=== PATIENT | male | born 1965 | race Caucasian/White ===

== ENCOUNTER 2018-10-18 11:11 | Emergency (ER) | payer BC ==
[2018-10-18] MEDS ORDERED: Dexamethasone 4 MG/ML SDV PO ONE (11:37)
[2018-10-18] MEDS ORDERED: Cetirizine 10 MG Tab PO ONE (11:37)
--- NOTE | 2018-10-18 11:55 | EDM.PDOC ---
ED HPI GENERAL MEDICAL PROBLEM - General Chief Complaint: Bite:Animal, Insect Stated Complaint: BEE STING AND IS ALLERGIC Time Seen by Provider: 10/18/18 11:35 Source of Information: Reports: Patient, Family History Limitations: Reports: No Limitations - History of Present Illness INITIAL COMMENTS - FREE TEXT/NARRATIVE: Palomo is a 53 year old male who presents to the ED today after being stung twice by bees around 1045 this morning. Patient does have a bee sting allergy, has had to use epi pens in the past, did not have with today but did take 25 mg of Benadryl prior to arrival here. Sting locations to right foot and right upper arm, no stinger. Patient denies any sob, oral swelling or trouble with secretions. Onset: Today - Related Data Allergies Allergy/AdvReac Type Severity Reaction Status Date / Time No Known Allergies Allergy Verified 10/18/18 11:31 Home Meds: Home Meds Omeprazole 1 tab PO DAILY 10/18/18 [History] Past Medical History Gastrointestinal History: Reports: GERD - Past Surgical History GI Surgical History: Reports: Hernia Repair/Other Social & Family History - Tobacco Use Smoking Status *Q: Never Smoker - Alcohol Use Days Per Week of Alcohol Use: 3 Number of Drinks Per Day: 3 Total Drinks Per Week: 9 - Recreational Drug Use Recreational Drug Use: No ED ROS GENERAL - Review of Systems Review Of Systems: ROS reveals no pertinent complaints other than HPI. ED EXAM, ANIMAL BITE - Physical Exam Exam: See Below Exam Limited By: No Limitations General Appearance: Alert, WD/WN, No Apparent Distress Eye Exam: Bilateral Eye: EOMI Ears: Normal External Exam Nose: Normal Inspection Throat/Mouth: Normal Inspection, Normal Oropharynx, No Airway Compromise Head: Atraumatic, Normocephalic Neck: Normal Inspection, Supple, Non-Tender, Full Range of Motion Respiratory/Chest: No Respiratory Distress, Lungs Clear, Normal Breath Sounds Cardiovascular: Normal Peripheral Pulses, Regular Rate, Rhythm GI/Abdominal: Normal Bowel Sounds Extremities: Normal Inspection Neurological: Alert, Oriented, CN II-XII Intact Psychiatric: Normal Affect, Normal Mood Skin Exam: Normal Color, Rash, Other (redness to right upper arm and right foot where patient was stung, no warmth, hive to right forearm) Lymphatic: No Adenopathy Course - Vital Signs Last Recorded V/S: Last Vital Signs Temp 36.5 C 10/18/18 11:31 Pulse 98 10/18/18 11:31 Resp 18 10/18/18 11:31 BP 146/92 H 10/18/18 11:31 Pulse Ox 93 L 10/18/18 11:31 Palomo is a 53 year old male with hx of bee sting allergy who presents after being stung twice prior to arrival. Please refer to HPI and focused exam. Patient on arrival is hemodynamically stable, he has no respiratory difficulty, no wheezing/sob/stridor. No drooling. Small urticarial rash noted to right forearm. Patient given a dose of Zyrtec, Zantac and Decadron here in the ED. Patient doing well after being here for 1.5 hours, has not required any epi. Will discharge home with ongoing supportive care. He has epi at home declines Rx here. Reasons to return discussed, patient agreeable and discharged in stable condition. - Orders/Labs/Meds Orders: Active Orders 24 hr Category Date Time Status Ranitidine [Zantac] Med 10/19/18 11:37 Once 150 mg PO DAILY ONE Medication Orders Ranitidine HCl (Zantac) 150 mg PO DAILY ONE Stop: 10/19/18 11:38 Last Admin: 10/18/18 11:56 Dose: 150 mg Meds: Medications Generic Name Dose Route Start Last Admin Trade Name Freq PRN Reason Stop Dose Admin Ranitidine HCl 150 mg 10/19/18 11:37 10/18/18 11:56 Zantac PO 10/19/18 11:38 150 mg DAILY ONE Administration Discontinued Medications Generic Name Dose Route Start Last Admin Trade Name Freq PRN Reason Stop Dose Admin Cetirizine HCl 10 mg 10/18/18 11:37 10/18/18 11:56 Zyrtec PO 10/18/18 11:38 10 mg ONETIME ONE Administration Dexamethasone 10 mg 10/18/18 11:37 10/18/18 11:57 Dexamethasone PO 10/18/18 11:38 10 mg ONETIME ONE Administration Departure - Departure Time of Disposition: 13:00 Disposition: Home, Self-Care 01 Condition: Good Clinical Impression: Allergic reaction to bee sting - Discharge Information Instructions: Insect Bite, Adult, [id number] Referrals: PCP,None [Primary Care Provider] - Forms: ED Department Discharge Additional Instructions: Zantac 150 mg twice daily for 5 days, take next dose this evening. Benadryl 25 mg every 4 hours as needed for hives/itching Zyrtec/Claritin daily for 5 days. - My Orders Last 24 Hours: My Active Orders 10/19/18 11:37 Ranitidine [Zantac] 150 mg PO DAILY ONE - Assessment/Plan Last 24 Hours: My Active Orders 10/19/18 11:37 Ranitidine [Zantac] 150 mg PO DAILY ONE
== END 2018-10-18 12:51 | disposition home or self-care (01) ==
LOC: JP.ED 11:11
DX: T63.441A Toxic effect of venom of bees, accidental (unintentional), initial encounter (principal); L50.0 Allergic urticaria; K21.9 Gastro-esophageal reflux disease without esophagitis; Z79.899 Other long term (current) drug therapy; X58.XXXA Exposure to other specified factors, initial encounter
CPT/HCPCS: 99282; A9270; J1100